=== PATIENT | female | born 1950 | race African-American/Black ===

== ENCOUNTER 2017-07-21 09:22 | Outpatient (CLI) | payer MEDICARE ==
--- NOTE | 2017-07-21 14:12 | RAD ---
BARIUM SWALLOW ESOPHAGRAM: Date: 07/21/17 HISTORY: Dysphagia. COMPARISON: None. TECHNIQUE/FINDINGS: Patient brought to the fluoroscopy suite. All questions were answered. The patient was initially giv en gas-forming crystals. Next, thick liquid barium was given. Primary and secondary peristalsis was poor. There are tertiary contractions. No abnormal secondary extrinsic mass effect. No diverticulum. Next, the patient was given a 13 mm barium tablet. The patient tolerated this well. It came down to the thoracic inlet, although the patient vomited it up. Next, the patient was put in the AKINS positi on and given thin liquid barium to continuously drink. There was a small sliding hiatal hernia. Prim becka and secondary peristalsis was poor. There was reflux of contrast to the mid one-third esophagus. IMPRESSION: 1. Poor primary and secondary peristalsis with tertiary contractions. 2. Patient unable to tolerate barium tablet and vomited this up after it reached the thoracic inlet , for which is stayed static for about 20 seconds before the patient vomiting. The tablet did not ex tend down past the thoracic inlet. 3. Small sliding hiatal hernia and reflux to mid one-third esophagus. 4. No extrinsic mass effect or diverticulum. Fluoro Time: 1.5 minutes. Dose: 60.34 mGy*cm\S\2. POS: [facility]
== END 2017-07-21 09:23 | disposition home or self-care (01) ==
LOC: RAD 09:22
PROVIDERS: ATTEND Surgery
DX: R13.10 Dysphagia, unspecified (principal); K21.9 Gastro-esophageal reflux disease without esophagitis; K44.9 Diaphragmatic hernia without obstruction or gangrene; M54.12 Radiculopathy, cervical region
CPT/HCPCS: 74220

== ENCOUNTER 2017-09-23 10:26 | Outpatient (CLI) | payer MEDICARE ==
--- NOTE | 2017-09-23 11:28 | CT ---
TWO VIEWS CERVICAL SPINE WITHOUT CONTRAST: HISTORY: Constant neck pain. Cervical radiculopathy. COMPARISON: None. FINDINGS: Small volume fluid in the left mastoid. The thyroid is enlarged and somewhat heterogeneous. The lung apices are clear. The odontoid process is intact. The occipital condyles are intact. No displaced fracture. No malal ignment. Levels are as follows: C2-C3: There is a central posterior disk protrusion. No significant neural foraminal narrowing. Th e spinal canal is not narrowed. C3-C4: There is mild uncinate process hypertrophy and posterior disk osteophyte complex. Mild facet arthrosis. The spinal canal measures 7 mm. C4-C5: Moderate uncinate process hypertrophy. Circumferential disc space height loss. Moderate fac et arthrosis. The spinal canal measures approximately 6 mm. Moderate to severe right and moderate l eft-sided neural foraminal narrowing. The spinal canal measures 6 mm. C5-C6: Moderate uncinate process hypertrophy. Posterior disk osteophyte complex. Moderate left and mild right-sided facet arthrosis. Moderate left-sided neural foraminal narrowing. The spinal canal measures approximately 6 mm. C6-C7: Severe degenerative disk space height loss. Uncinate process hypertrophy. There is moderate left and mild right-sided facet arthropathy. The spinal canal measures 7 mm. Moderate to severe le ft and moderate right-sided neural foraminal narrowing. C7-T1: There is mild facet arthrosis bilaterally. Moderate degenerative disk space height loss. Th e spinal canal measure 1 cm. No significant neural foramina or spinal canal narrowing. IMPRESSION: Multilevel spondylosis with spinal canal and neural foraminal narrowing as described above. POS: [facility]
== END 2017-09-23 10:27 | disposition home or self-care (01) ==
LOC: SCSCT 10:26
PROVIDERS: ATTEND Surgery
DX: M47.22 Other spondylosis with radiculopathy, cervical region (principal); M99.51 Intervertebral disc stenosis of neural canal of cervical region
CPT/HCPCS: 72125

== ENCOUNTER 2017-10-12 09:00 | Inpatient (IN) | payer MEDICARE ==
[2017-10-12 09:39] VITALS: BMI 32.5
[2017-10-20] MEDS ORDERED: Thrombin 5000 UNITS/5 ML VIAL ONE (06:17)
[2017-10-20] MEDS ORDERED: Sodium Chloride 0.9% 10 ML ONE (06:17)
[2017-10-20] MEDS ORDERED: Bacitracin Zinc Ointment 30 gm TUBE ONE (06:17)
[2017-10-20] MEDS ORDERED: Clindamycin/D5W 900 mg/50 ml Premix Bag ONE ×2 (06:19→14:20)
[2017-10-20] MEDS ORDERED: Levofloxacin 500 mg/D5W 100 ml Premix Bag ONE (06:20)
[2017-10-20] MEDS ORDERED: Albumin 5% 500 ML ONE (06:33)
[2017-10-20] MEDS ORDERED: Phenylephrine 10 MG/NS 250 ML 0 ML ONE (06:33)
[2017-10-20] MEDS ORDERED: Famotidine/PF 20 mg/2ml Vial ONE (06:33)
[2017-10-20] MEDS ORDERED: Midazolam HCl 2 mg/2 ml Vial ONE (06:41)
[2017-10-20] MEDS ORDERED: Fentanyl 250 MCG/5 ML VIAL ONE (06:55)
[2017-10-20] MEDS ORDERED: HYDROmorphone 2 MG/ML VIAL SLOW IVP PRN (09:09)
[2017-10-20] MEDS ORDERED: Promethazine HCl 25 MG/ML VIAL IM PRN ×2 (09:09→09:49)
[2017-10-20] MEDS ORDERED: Promethazine HCl 25 MG/ML VIAL SLOW IVP PRN (09:09)
[2017-10-20] MEDS ORDERED: Morphine Sulfate 2 MG/ML SYRINGE SLOW IVP PRN (09:09)
[2017-10-20] MEDS ORDERED: Ondansetron HCl/PF 4 MG/2 ML Vial IVP PRN (09:09)
[2017-10-20] MEDS ORDERED: Meperidine HCl/PF 25 MG/ML VIAL SLOW IVP PRN (09:09)
[2017-10-20] MEDS ORDERED: traMADol HCl 50 MG TAB PO PRN (09:49)
[2017-10-20] MEDS ORDERED: Fleet Enema 133 ML BOT PR PRN (09:49)
[2017-10-20] MEDS ORDERED: Bisacodyl 10 MG SUPP PR PRN (09:49)
[2017-10-20] MEDS ORDERED: Mag-Al 1200 mg/1200 mg/30 ML UDCUP PO PRN (09:49)
[2017-10-20] MEDS ORDERED: Milk Of Magnesia 30 ML UDCUP PO PRN (09:49)
[2017-10-20] MEDS ORDERED: Acetaminophen 325 MG TAB PO PRN (09:49)
[2017-10-20] MEDS ORDERED: Loratadine 10 MG TAB PO PRN (09:52)
[2017-10-20] MEDS ORDERED: Fentanyl 100 MCG/2 ML VIAL ONE ×3 (10:07→13:35)
--- NOTE | 2017-10-20 10:58 | OP ---
DATE OF PROCEDURE: 10/20/2017 OR: OR #12. WOUND TYPE: Type 1 wound. SURGEON: Wesly Emery M.D. HYPOID GEAR GENERATOR: Thomas Reese PA-C. PREPROCEDURE DIAGNOSES: 1. Cervical stenosis with myelopathy. 2. Ossification of the posterior longitudinal ligament. POSTPROCEDURE DIAGNOSES: 1. Cervical stenosis with myelopathy. 2. Ossification of the posterior longitudinal ligament. PROCEDURE: 1. C4-C5, C5, top of C6 laminectomies, partial facetectomies and foraminotomies. 2. Placement of screw scarlett fixation, C4, C5, C6. 3. Posterolateral fusion C4, C5, C6 with use of autograft obtained from same incision and allograft. DESCRIPTION OF PROCEDURE: After informed consent was obtained from the patient, the patient brought to OR 12. Proper patient pause and identification was carried out. She was placed under excellent g eneral endotracheal anesthesia and the Moreno samuel secured to her skull. She was then positioned prone on the operating room table and all appropriate points were padded. Identified the C4, C5, C6 dorsal spines and lamina and a linear jerrell was made over this region. This area was sterilely clean sed, prepared, and draped. Proper patient pause and identification was carried out. The wound was t hen opened with a combination of sharp, monopolar and blunt dissection at C4, C5, C6 segments were ex posed. Localization film confirmed our area of interest. We then performed C4-C5 and top to mid por tion of C6 laminectomies, partial facetectomies and foraminotomies satisfactory decompression of the C4, C5, and C6 segments. We then placed screws in the lateral masses of C4, C5, C6, and rods were pl aced and final tightening occurred. Satisfied with our construct we then copiously irrigated the wou nd and maximized hemostasis. We then decorticated over the posterolateral regions for arthrodesis an d fusion at C4, C5, C6. Vancomycin powder was also spread into the wound and the wound was closed in anatomic layers. The patient then emerged from anesthesia.
[2017-10-20] MEDS ORDERED: HYDROcodone/Acetaminophen 7.5/325 mg Tablet ONE (14:20)
[2017-10-20] MEDS ORDERED: Glycopyrrolate 0.2 MG/ML 5 ML SYRINGE ONE (15:05)
[2017-10-20] MEDS ORDERED: Dexamethasone 20 MG/5 ML VIAL ONE (15:05)
[2017-10-20] MEDS ORDERED: ePHEDrine/0.9% NaCl/PF SYRINGE 50 mg/10 ml ONE (15:05)
[2017-10-20] MEDS ORDERED: Ondansetron HCl/PF 4 MG/2 ML Vial ONE (15:05)
[2017-10-20] MEDS ORDERED: Propofol 200 MG/20 ML VIAL ONE (15:05)
[2017-10-20] MEDS ORDERED: Lidocaine 1% PF 5 ML VIAL ONE (15:05)
[2017-10-20] MEDS ORDERED: PHENYLEPHRINE-NS 100 MCG/ML 10 ML SYRINGE ONE (15:05)
[2017-10-20] MEDS ORDERED: Calcium Chloride 1 GM/10 ML Abboject SYRINGE ONE (15:05)
[2017-10-20] MEDS ORDERED: Morphine 2 MG/ML SYRINGE ONE (15:16)
[2017-10-20] MEDS: Clindamycin/D5W 900 MG in Premix Bag 1 BAG IVPB SCH ×2 (15:48→21:14)
[2017-10-20] MEDS: Sodium Chloride 0.9% 1,000 ML IV SCH (15:59)
[2017-10-20] MEDS: Ondansetron HCl/PF 4 MG/2 ML Vial IVP PRN (17:05)
[2017-10-20] MEDS: NIFEdipine XL 30 MG TAB PO SCH (21:17)
[2017-10-20] MEDS: HYDROcodone/Acetaminophen 7.5/325 mg Tablet PO PRN (21:23)
[2017-10-21] MEDS: Sodium Chloride 0.9% 1,000 ML IV SCH ×3 (00:39→18:06)
[2017-10-21] MEDS: HYDROcodone/Acetaminophen 7.5/325 mg Tablet PO PRN ×2 (04:16→14:10)
[2017-10-21] MEDS: Ondansetron HCl/PF 4 MG/2 ML Vial IVP PRN ×2 (07:48→14:10)
[2017-10-21] MEDS ORDERED: Loratadine 10 MG TAB PO PRN (09:00)
[2017-10-21] MEDS: Losartan/Hydrochlorothiazide 100 mg/25 mg Tablet PO SCH (09:12)
[2017-10-21] MEDS: Multivit, Therapeutic 1 TAB PO SCH (09:12)
[2017-10-21] MEDS: tiZANidine HCl 4 MG TAB PO PRN ×2 (11:23→18:06)
--- NOTE | 2017-10-21 13:38 | PRG ---
DATE OF SERVICE: 10/21/2017 SUBJECTIVE: Ms. Cage is postoperative day #01 from cervical laminectomy and decompression. She st ates her upper extremity pain is already improved. Obviously, we have been dealing with postoperativ e incisional pain standard for this type of surgery. She is not yet mobilized in the halls and we wi ll work on that. Neurologically, she is doing well. I anticipate at least another day in the hospit al.
[2017-10-21] MEDS: Acetaminophen/Codeine 30-300mg Tablet PO PRN ×2 (20:00→23:14)
[2017-10-21] MEDS: NIFEdipine XL 30 MG TAB PO SCH (20:00)
[2017-10-22] MEDS: Acetaminophen/Codeine 30-300mg Tablet PO PRN ×2 (05:12→12:31)
[2017-10-22] MEDS: Multivit, Therapeutic 1 TAB PO SCH (08:05)
[2017-10-22] MEDS: Losartan/Hydrochlorothiazide 100 mg/25 mg Tablet PO SCH (08:05)
[2017-10-22 11:34] VITALS: BP 134/88; TEMP 98.7
--- NOTE | 2017-10-22 17:00 | PRG ---
DATE OF SERVICE: 10/22/2017 POSTOPERATIVE PROGRESS NOTE Thomas Reese PA-C, dictating for Wesly Emery MD Ms. Cage is now postoperative day #2, having undergone a posterior cervical fusion. She states her pain is under much better control today. She does have some neck soreness, especially with movement . She has walked with physical therapy. Her pain is well controlled with oral medications. She has tolerated a diet and has voided. She is at her neurological baseline with good strength in the bila teral upper extremities. Her incision is uncovered and it is clean, dry, intact, and consistent with anticipated wound healing. It is closed with ye. I have asked the nurse to redress her wound before she leaves and I have reminded her daughter who is at bedside appropriate postoperative activi ty restrictions. I would like to keep the incision covered during the day, uncovered at night and co soni when she is wearing her collar. The patient is stable for discharge from [facility] with outpatient followup appointments.
== END 2017-10-22 13:56 | disposition home or self-care (01) | DRG 472 ==
LOC: SURG A 10-20 05:49
PROVIDERS: ADMIT Surgery; ATTEND Surgery
PROC: 00NW0ZZ Release Cervical Spinal Cord, Open Approach (ICD-10-PCS; principal; 2017-10-20)
PROC: 0RG40AJ Fusion of Cervicothoracic Vertebral Joint with Interbody Fusion Device, Posterior Approach, Anterior Column, Open Approach (ICD-10-PCS; 2017-10-20)
DX: M48.02 Spinal stenosis, cervical region (principal); M47.12 Other spondylosis with myelopathy, cervical region; R13.19 Other dysphagia; M85.80 Other specified disorders of bone density and structure, unspecified site; I10 Essential (primary) hypertension; E78.5 Hyperlipidemia, unspecified
CPT/HCPCS: 76001; 93005; 93010; A4216; C1713; G8978-GP-CK; G8979-GP-CK; G8980-GP-CK; J0131; J1100; J1956; J2001; J2250; J2270; J2405; J2704; J3010; J3370; J3490; P9045; S0028

== ENCOUNTER 2017-10-12 09:15 | Outpatient (CLI) | payer MEDICARE ==
[2017-10-12 10:23] LABS: Hemoglobin 16.3 g/dL (12.0-16.0); Mean Corpuscular HGB CONC 32.6 g/dL (32.0-36.0); Mean Corpuscular Hemoglobin 28.3 pg (27.0-31.0); Mean Corpuscular Volume 86.8 fl (81.0-99.0); Mean Platelet Volume 8.4 fL (7.4-10.4); Platelet Count 260 thou/uL (130-400); RBC Distribution Width 17.1 % (11.5-14.5); Red Blood Cell (RBC) Count 5.76 mill/uL (4.20-5.40); White Blood Cell (WBC) Count 4.7 thou/uL (4.8-10.8)
[2017-10-12 10:31] LABS: INR-International Normal Ratio 0.9; PTT 25.7 SEC (22.9-36.1); Prothrombin Time 12.5 SEC (12.0-14.7)
[2017-10-12 10:43] LABS: Anion Gap 16 mmol/L (10-20); BUN (Urea Nitrogen) 12 mg/dL (9.8-20.1); Calc. Creatinine Clearance 0 mL/min (70-130); Calcium 10.3 mg/dL (7.8-10.44); Carbon Dioxide 25 mmol/L (23-31); Chloride 102 mmol/L (98-107); Estimated GFR-MDRD 78; Glucose 93 mg/dL (80-115); Potassium 3.5 mmol/L (3.5-5.1); Sodium 139 mmol/L (136-145)
--- NOTE | 2017-10-13 23:35 | EKG ---
Test Reason : Blood Pressure : / mmHG Vent. Rate : 090 BPM Atrial Rate : 090 BPM P-R Int : 168 ms QRS Dur : 078 ms QT Int : 390 ms P-R-T Axes : 052 050 012 degrees QTc Int : 477 ms Normal sinus rhythm Normal ECG When compared with ECG of 20-MAY-2008 22:42, Questionable change in QRS axis Confirmed by Maryann COX ([id number]) on 10/13/2017 11:34:56 PM Referred By: ABBY Confirmed By:Maryann COX
== END 2017-10-12 09:16 | disposition home or self-care (01) ==
LOC: LABBT 09:15
PROVIDERS: ATTEND Surgery
DX: Z01.812 Encounter for preprocedural laboratory examination (principal); Z01.810 Encounter for preprocedural cardiovascular examination; M47.12 Other spondylosis with myelopathy, cervical region; Z88.0 Allergy status to penicillin; Z88.8 Allergy status to other drugs, medicaments and biological substances
CPT/HCPCS: 80048; 85027; 85610; 85730; 87081; 93005; 93010

== ENCOUNTER 2017-11-25 10:54 | Outpatient (CLI) | payer MEDICARE ==
--- NOTE | 2017-11-25 13:07 | RAD ---
CERVICAL SPINE SERIES THREE VIEWS: History: Follow up of cervical spine fracture. Comparison: 10-20-17 CT FINDINGS: Post-operative changes of the spine are noted. Bilateral posterior facet screws are seen at C4, C5, a nd C6. Disc narrowing is seen at the C5-6 and C6-7 levels. No evidence of a fracture on this plain fi lm examination. Bony alignment appears fairly satisfactory. IMPRESSION: Post-operative changes of the spine. POS: [facility]
== END 2017-11-25 10:55 | disposition home or self-care (01) ==
LOC: SCSRAD 10:54
PROVIDERS: ATTEND Surgery
DX: M54.12 Radiculopathy, cervical region (principal); Z98.890 Other specified postprocedural states
CPT/HCPCS: 72040

== ENCOUNTER 2018-06-25 14:04 | Outpatient (CLI) | payer MEDICARE | END 2018-06-25 14:05 | disposition home or self-care (01) | LOC: BICMAMMO 14:04 | PROVIDERS: ATTEND Family Medicine | DX: R92.8 Other abnormal and inconclusive findings on diagnostic imaging of breast (principal) | CPT/HCPCS: 77066; G0279 ==

== ENCOUNTER 2019-07-27 10:21 | Outpatient (CLI) | payer MEDICARE ==
--- NOTE | 2019-07-27 11:12 | MMO ---
Bilateral MAMMO Bilat Screen [facility]. CLINICAL HISTORY: Patient is 68 years old and is seen for screening. The patient has no family history of breast cancer. The patient has no personal history of cancer. The patient has a history of left Excisional Biopsy in 1988 - benign. VIEWS: The views performed were: bilateral craniocaudal with tomosynthesis and bilateral mediolateral oblique with tomosynthesis. FILMS COMPARED: The present examination has been compared to prior imaging studies performed at [facility] on 10/21/2011, 12/15/2012, 12/21/2012 and 06/25/2018. This study has been interpreted with the assistance of computer-aided detection. MAMMOGRAM FINDINGS: There are scattered fibroglandular densities. There are no suspicious masses, suspicious calcifications, or new areas of architectural distortion. IMPRESSION: THERE IS NO MAMMOGRAPHIC EVIDENCE OF MALIGNANCY. A ROUTINE FOLLOW-UP MAMMOGRAM IN 1 YEAR IS RECOMMENDED. THE RESULTS OF THIS EXAM WERE SENT TO THE PATIENT. ACR BI-RADS Category 1 - Negative MAMMOGRAPHY NOTE: 1. A negative mammogram report should not delay a biopsy if a dominant of clinically suspicious mass is present. 2. Approximately 10% to 15% of breast cancers are not detected by mammography. 3. Adenosis and dense breasts may obscure an underlying neoplasm. Reported by: FELIBERTO BAUER MD Electonically Signed: [id number]
--- NOTE | 2019-07-27 12:45 | BD ---
DEXA BONE MINERAL DENSITY STUDY: HISTORY: Osteoporosis screening. COMPARISON: DEXA exam from 2017. FINDINGS: LUMBAR SPINE BMD (g/cm2) T-SCORE Z-SCORE L1 0.720 -2.5 -1.2 L2 0.782 -2.2 -0.8 L3 0.835 -2.3 -0.8 L4 0.921 -1.3 0.2 TOTAL 0.821 -2.1 -0.6 Change from the comparison examination is +3.2%. BMD (g/cm2) T-SCORE Z-SCORE FEMORAL NECK 0.606 -2.2 -1.0 TOTAL LEFT HIP 0.789 -1.3 -0.3 Change from the comparison examination is -2.5%. IMPRESSION: Osteopenia with elevated fracture risk. POS: [facility]
== END 2019-07-27 10:22 | disposition home or self-care (01) ==
LOC: BICMAMMO 10:21
PROVIDERS: ATTEND Family Medicine
DX: Z12.31 Encounter for screening mammogram for malignant neoplasm of breast (principal); Z78.0 Asymptomatic menopausal state; Z13.820 Encounter for screening for osteoporosis; M85.89 Other specified disorders of bone density and structure, multiple sites
CPT/HCPCS: 77063; 77067; 77080

== ENCOUNTER 2019-08-23 13:00 | Outpatient (CLI) | payer MEDICARE ==
--- NOTE | 2019-08-23 15:42 | MRI ---
MRI Lumbar Spine Noncontrast: HISTORY: Lumbar stenosis with neurogenic claudication. No known injury. Patient states chronic low back pain f or many years COMPARISON: 05/11/2015 FINDINGS: Multiple increased T2-weighted signal intensity lesions are again seen in each kidney overall stable when compared to the prior study and likely represent renal cysts. Conus medullaris is normal in morphology and terminates at the L2 level. There has been interval development of a focal defect in the central aspect superior endplate of the L3 vertebral body likely related to a prominent Schmorl's node. Endplate degenerative changes are present at the L5-S1 level. There is incomplete visualization of irregularity involving the inferior endplate of the T11 vertebral body probably related to endplate degenerative changes or Schmorl's node. T12-L1: No significant central canal or neural foraminal narrowing. L1-2: Minimal disc bulge is again noted. There is no significant narrowing of the central spinal rory l or neural foramina. Mild facet degenerative changes are present. L2-3: Minimal disc bulge is again noted. Mild facet hypertrophic changes are present with mild ligame ntous thickening. There is no significant central canal or neural foraminal narrowing. L3-4: There is a broad-based disc osteophyte complex with facet hypertrophic changes and ligamentous thickening. Mild central canal narrowing is present with minimal left-sided neural foraminal narrowing. The right neural foramen is patent. L4-5: Mild disc bulge present. Facet hypertrophic changes and ligamentous thickening are noted. Findi ngs result in mild narrowing of the central spinal canal with mild bilateral neural foraminal narrowing. L5-S1: Again, there is loss of intervertebral disc height. Broad-based disc osteophyte complex with f acet hypertrophic changes and ligamentous thickening are again noted. Moderate bilateral neural foraminal narrowing is again seen similar to the prior study. Moderate central canal narrowing is als o again seen and stable. IMPRESSION: 1. Stable multilevel degenerative changes throughout the lumbar spine again most prominent at the L5- S1 level. 2. Interval development of a prominent Schmorl's node in the superior endplate L4 vertebral body. 3. T2 hyperintense lesions within each kidney likely reflective of bilateral renal cysts and are val lar to prior study.
== END 2019-08-23 13:01 | disposition home or self-care (01) ==
LOC: SCSMRI 13:00
PROVIDERS: ATTEND Specialist
DX: M48.062 Spinal stenosis, lumbar region with neurogenic claudication (principal); M47.816 Spondylosis without myelopathy or radiculopathy, lumbar region; M47.817 Spondylosis without myelopathy or radiculopathy, lumbosacral region; M51.46 Schmorl's nodes, lumbar region; N28.9 Disorder of kidney and ureter, unspecified
CPT/HCPCS: 72148

== ENCOUNTER 2020-04-16 13:41 | Outpatient (CLI) | payer MEDICARE ==
--- NOTE | 2020-04-16 14:06 | RAD ---
EXAM: Chest 2 views: HISTORY: Spitting up blood/hemoptysis COMPARISON: None. FINDINGS: There is a normal-sized cardiomediastinal silhouette. There is no evidence of consolidation, mass, or pleural effusion. Degenerative and postsurgical changes are seen in the spine. IMPRESSION: No evidence of acute cardiopulmonary disease
== END 2020-04-16 13:42 | disposition home or self-care (01) ==
LOC: SCSRAD 13:41
PROVIDERS: ATTEND Family Medicine
DX: R04.2 Hemoptysis (principal)
CPT/HCPCS: 71046

== ENCOUNTER 2020-06-12 14:14 | Outpatient (CLI) | payer MEDICARE ==
--- NOTE | 2020-06-12 15:24 | RAD ---
EXAM: XR Lumbar Spine Min 4 View PROVIDED CLINICAL HISTORY: Chronic back pain. Lumbar stenosis with neurogenic claudication COMPARISON: 12/30/2013 FINDINGS: Again noted are 5 nonrib-bearing lumbar-type vertebral bodies. Again noted is loss of intervertebral disc space at the L5-S1 level with suggestion of minimal vacuum phenomenon. The remaining intervertebral disc spaces as well as vertebral body heights are within normal limits. No fracture or subluxation is seen. There is what is thought to be prominent Schmorl's node in the superior endplate of the L4 vertebral body. This was seen on MRI lumbar spine and 2019. Vascular calcifications are seen in the abdominal aorta and iliac arteries. Vascular calcifications o verlying the pelvis. IMPRESSION: Degenerative changes in the lumbar spine greatest at the lumbosacral junction. No fracture or subluxa tion is seen.
--- NOTE | 2020-06-12 15:45 | MRI ---
MRI lumbar spine noncontrast HISTORY: Low back pain. Neurogenic claudication. COMPARISON: 08/23/2019. FINDINGS: Conus medullaris has normal appearance. Vertebral body heights are maintained. Images including the retroperitoneum again show cysts arising from the cortex of each kidney. T11-12: Disc space narrowing and mild posterior disc bulge, stable. T12-L1, L1-2, L2-3: Mild osteophytosis. Central canal and neural foramina are patent. L3-4: Mild disc space narrowing. Desiccation of the disc. Posterior disc bulge. Schmorl's node throug h the L4 superior endplate is similar in appearance to the prior study. Osteophytosis of the facets and posterior ligamentous thickening. Mild central canal stenosis. Mild to moderate right and moderat e left foraminal stenoses, stable. L4-5: Desiccation of the disc. Mild posterior disc bulging. Circumferential degenerative changes. Mod erate stenosis of the central canal. Moderate bilateral foraminal stenoses. L5-S1: Disc space narrowing. Minimal degenerative retrolisthesis. Posterior disc bulge and circumfere ntial degenerative changes. Moderate stenosis of the central canal and each neural foramen, left greater than right. Similar in appearance to the prior study. IMPRESSION : Multilevel degenerative changes throughout the lumbar spine, as detailed above, have not changed sign ificantly. No high-grade central canal stenosis. Stenosis greatest at the left neural foramen lumbosacral junction. Clinical correlation regarding the left L5 dermatome is required.
== END 2020-06-12 14:15 | disposition home or self-care (01) ==
LOC: SCSMRI 14:14
PROVIDERS: ATTEND Nurse Practitioner Family
DX: M48.062 Spinal stenosis, lumbar region with neurogenic claudication (principal); M47.816 Spondylosis without myelopathy or radiculopathy, lumbar region; M47.817 Spondylosis without myelopathy or radiculopathy, lumbosacral region; M48.07 Spinal stenosis, lumbosacral region
CPT/HCPCS: 72110; 72148

== ENCOUNTER 2021-05-20 13:52 | Outpatient (CLI) | payer MEDICARE | END 2021-05-20 13:53 | disposition home or self-care (01) | LOC: BICRAD 13:52 | PROVIDERS: ATTEND Internal Medicine Pulmonary Disease | DX: R06.00 Dyspnea, unspecified (principal) | CPT/HCPCS: 71046 ==

== ENCOUNTER 2021-06-12 19:30 | Outpatient (CLI) | payer MEDICARE | END 2021-06-12 19:31 | disposition home or self-care (01) | LOC: SLEEPLAB 19:30 | PROVIDERS: ATTEND Internal Medicine Pulmonary Disease | DX: G47.33 Obstructive sleep apnea (adult) (pediatric) (principal); R53.83 Other fatigue; R51.9 Headache, unspecified; E66.9 Obesity, unspecified; I51.89 Other ill-defined heart diseases; R06.83 Snoring; F32.9 Major depressive disorder, single episode, unspecified; G47.00 Insomnia, unspecified; Z68.35 Body mass index [BMI] 35.0-35.9, adult | CPT/HCPCS: 95810 ==

== ENCOUNTER 2021-06-30 18:03 | Emergency (ER) | payer MEDICARE ==
[2021-06-30 19:22] LABS: Hemoglobin 13.1 g/dL (12.0-16.0); Mean Corpuscular HGB CONC 31.9 g/dL (32.0-36.0); Mean Corpuscular Hemoglobin 24.4 pg (27.0-31.0); Mean Corpuscular Volume 76.6 fL (78.0-98.0); Mean Platelet Volume 11.6 fL (7.4-10.4); Platelet Count 295 thou/uL (130-400); RBC Distribution Width 20.2 % (11.5-14.5); Red Blood Cell (RBC) Count 5.37 mill/uL (4.20-5.40)
[2021-06-30 19:39] LABS: ALT (SGPT) 12 U/L (8-55); AST (SGOT) 28 U/L (5-34); Albumin 4.2 g/dL (3.4-4.8); Alkaline Phosphatase 107 U/L (40-110); Anion Gap 13 mmol/L (10-20); BUN (Urea Nitrogen) 7 mg/dL (9.8-20.1); Bilirubin, Total 0.6 mg/dL (0.2-1.2); Calc. Creatinine Clearance 0 mL/min (70-130); Calcium 9.4 mg/dL (7.8-10.44); Carbon Dioxide 20 mmol/L (23-31); Chloride 108 mmol/L (98-107); Glucose 82 mg/dL (83-110); Potassium 4.4 mmol/L (3.5-5.1); Protein, Total 8.2 g/dL (5.8-8.1); Sodium 137 mmol/L (136-145)
[2021-06-30 19:48] LABS: Anisocytosis SLIGHT = 6-15 cells (100X) (0-5/hpf); Eosinophils 4 % (0-10); Hypochromia SLIGHT = 6-15 cells (100X) (0-5/hpf); Large Platelets SLIGHT; Lymphocytes 30 % (21-51); MDiff Complete? YES; Microcytosis SLIGHT = 6-15 cells (100X) (0-5/hpf); Monocytes 11 % (0-10); Neutrophil 47 % (42-75); Platelet Morphology Comment Appears Adequate; Polychromasia SLIGHT = 2-3 cells (100X) (0-2/hpf); Reactive Lymphocytes 8 % (0-10); Target Cells MODERATE= 6-15 cells (100X) (0-1/hpf)
[2021-06-30] MEDS ORDERED: Ketorolac Tromethamine 30 MG/ML VIAL ONE (20:08)
== END 2021-06-30 21:10 | disposition home or self-care (01) ==
LOC: ERS 18:03
DX: M25.462 Effusion, left knee (principal); Z79.899 Other long term (current) drug therapy; Z79.82 Long term (current) use of aspirin; Z79.891 Long term (current) use of opiate analgesic; E78.5 Hyperlipidemia, unspecified; K21.9 Gastro-esophageal reflux disease without esophagitis; I10 Essential (primary) hypertension; Z87.891 Personal history of nicotine dependence
CPT/HCPCS: 36415; 80053; 85025; 86140; 96372; J1885

== ENCOUNTER 2021-09-05 08:34 | Outpatient (CLI) | payer MEDICARE | END 2021-09-05 08:35 | disposition home or self-care (01) | LOC: BICMAMMO 08:34 | PROVIDERS: ATTEND Family Medicine | DX: Z12.31 Encounter for screening mammogram for malignant neoplasm of breast (principal); Z13.820 Encounter for screening for osteoporosis; N95.1 Menopausal and female climacteric states; M85.88 Other specified disorders of bone density and structure, other site; M81.0 Age-related osteoporosis without current pathological fracture | CPT/HCPCS: 77063; 77067; 77080 ==

== ENCOUNTER 2021-12-20 14:38 | Outpatient (CLI) | payer MEDICARE | END 2021-12-20 14:39 | disposition home or self-care (01) | LOC: ULT 14:38 | PROVIDERS: ATTEND Orthopaedic Surgery | DX: S82.142A Displaced bicondylar fracture of left tibia, initial encounter for closed fracture (principal) ==

== ENCOUNTER 2022-05-12 16:16 | Outpatient (CLI) | payer MEDICARE | END 2022-05-12 16:17 | disposition home or self-care (01) | LOC: RAD 16:16 | PROVIDERS: ATTEND Internal Medicine Pulmonary Disease | DX: J44.1 Chronic obstructive pulmonary disease with (acute) exacerbation (principal) | CPT/HCPCS: 71046 ==

== ENCOUNTER 2022-11-19 13:32 | Outpatient (CLI) | payer MEDICARE | END 2022-11-19 13:33 | disposition home or self-care (01) | LOC: BICMAMMO 13:32 | PROVIDERS: ATTEND Family Medicine | DX: Z12.31 Encounter for screening mammogram for malignant neoplasm of breast (principal); Z91.89 Other specified personal risk factors, not elsewhere classified | CPT/HCPCS: 77063; 77067 ==

== ENCOUNTER 2023-07-03 14:41 | Outpatient (CLI) | payer MEDICARE ==
[~2023-07-03 14:41] MED LIST: Iopamidol 370 76% 100 ML VIAL ONE
== END 2023-07-03 14:42 | disposition home or self-care (01) ==
LOC: BICCT 14:41
PROVIDERS: ATTEND Family Medicine
DX: R19.7 Diarrhea, unspecified (principal); K57.30 Diverticulosis of large intestine without perforation or abscess without bleeding; N28.1 Cyst of kidney, acquired
CPT/HCPCS: 74177; 82565; Q9967

== ENCOUNTER 2023-07-21 15:30 | Outpatient (CLI) | payer MEDICARE | END 2023-07-21 15:31 | disposition home or self-care (01) | LOC: BICMRI 15:30 → SCSMRI 15:31 | PROVIDERS: ATTEND Nurse Practitioner Family | DX: M51.17 Intervertebral disc disorders with radiculopathy, lumbosacral region (principal); M47.816 Spondylosis without myelopathy or radiculopathy, lumbar region; M51.36 Other intervertebral disc degeneration, lumbar region | CPT/HCPCS: 72148 ==

== ENCOUNTER 2024-03-17 19:03 | Inpatient (IN) | payer MEDICARE ==
[~2024-03-17 19:03] MED LIST changes: -Iopamidol 370 76% 100 ML VIAL ONE; +Iopamidol-370 76% 500 ML MDV (1 ML CHARGE) ONE
[2024-03-17] MEDS ORDERED: Cefepime 2 GM VIAL ONE (20:14)
[2024-03-17] MEDS ORDERED: Sodium Chloride 0.9% 100 ML ONE (20:15)
[2024-03-17] MEDS ORDERED: levETIRAcetam 500 MG (5 mL) VIAL ONE (20:21)
[2024-03-17] MEDS ORDERED: Lorazepam 2 MG/ML VIAL ONE (20:21)
[2024-03-17] MEDS ORDERED: Acetaminophen 650 MG Suppository ONE (20:21)
[2024-03-17] MEDS ORDERED: Aspirin 300 MG Suppository ONE (20:22)
[2024-03-17 20:23] LABS: ALT (SGPT) 11 U/L (8-55); AST (SGOT) 18 U/L (5-34); Albumin 3.3 g/dL (3.4-4.8); Alkaline Phosphatase 96 U/L (40-110); Anion Gap 15 mmol/L (10-20); BUN (Urea Nitrogen) 50 mg/dL (9.8-20.1); Bilirubin, Total 0.4 mg/dL (0.2-1.2); Calc. Creatinine Clearance 0 mL/min (70-130); Calcium 8.8 mg/dL (7.8-10.44); Carbon Dioxide 14 mmol/L (23-31); Chloride 110 mmol/L (98-107); Estimated GFR 19; Glucose 99 mg/dL (83-110); Magnesium 2.2 mg/dL (1.6-2.6); Potassium 5.3 mmol/L (3.5-5.1); Protein, Total 8.3 g/dL (5.8-8.1); Sodium 134 mmol/L (136-145)
[2024-03-17 20:59] LABS: Hematocrit 42.9 % (36.0-47.0); Hemoglobin 14.2 g/dL (12.0-16.0); Mean Corpuscular HGB CONC 33.1 g/dL (32.0-36.0); Mean Corpuscular Hemoglobin 29.9 pg (27.0-31.0); Mean Corpuscular Volume 90.3 fL (78.0-98.0); Mean Platelet Volume 10.9 fL (7.4-10.4); Platelet Count 234 10x3/uL (130-400); Red Blood Cell (RBC) Count 4.75 mill/uL (4.20-5.40)
[2024-03-17] MEDS ORDERED: Ipratropium/Albuterol 3 ML NEB ONE (21:24)
[2024-03-17] MEDS ORDERED: Albuterol 2.5 MG (3 mL) NEB ONE (21:24)
[2024-03-17 21:27] LABS: Anisocytosis MODERATE=16-30 cells HPF (0-5); Band 13 % (5-11); Large Platelets 3.8 % (0-5); Lymphocytes 12 % (21-51); Macrocytosis MODERATE=16-30 cells HPF (0-5); Monocytes 7 % (0-10); Neutrophil 69 % (42-75); Platelet Adequacy Comment Platelets Normal; Polychromasia SLIGHT = 2-3 cells HPF (0-2); RBC Morphology Within Normal Limits; Smudge Cells 8.7 %
[2024-03-17] MEDS ORDERED: Ketamine In 0.9 % NaCl 50 MG/5 ML SYRINGE ONE (21:40)
[2024-03-17] MEDS ORDERED: fentaNYL 50 mcg/mL 1 mL Vial ONE (21:45)
[2024-03-17] MEDS ORDERED: Rocuronium Bromide 10 MG/ML (10ML VIAL) ONE (21:46)
[2024-03-17 22:11] LABS: Base Excess (BEa) -13.5 mEq/L (-2.0 to +3.0); CO2 Tension 30.8 mmHg (35.0-45.0); Calcium, Ionized (arterial) 1.18 mmol/L (1.12-1.30); Carboxyhemoglobin (COHb) 0.7 gm% (0.0-3.0); Hematocrit-ABG 47 % (36.0-47.0); O2 Tension (PaO2), arterial 279.8 mmHg (> 70.0); pH, Arterial 7.229 (7.35-7.45)
[2024-03-17 22:11] LABS: Influenza A by NAA Not Detected (NotDetected); Influenza B by NAA Not Detected (NotDetected); SARS-CoV-2 NAA Rapid Test DETECTED (NotDetected)
[2024-03-17] MEDS ORDERED: Ondansetron PF 4 MG/2 ML Vial IVP PRN (22:12)
[2024-03-17] MEDS ORDERED: Ondansetron ODT 4 MG TAB PO PRN (22:12)
[2024-03-17 22:14] LABS: Actual Bicarbonate (HCO3a) 12.6 mEq/L (22-28); Puncture Site RB
[2024-03-17] MEDS ORDERED: Fentanyl CADD 100 ML IV SCH (22:15)
[2024-03-17] MEDS ORDERED: Ventilator Sedation Protocol 1 EACH FS SCH (22:45)
[2024-03-17] MEDS ORDERED: hydrALAZINE 20 MG/ML VIAL SLOW IVP PRN (22:50)
[2024-03-17] MEDS ORDERED: methylPREDNISolone Sod Succ/PF 125 MG/2 ML VIAL ONE (22:56)
[2024-03-17] MEDS ORDERED: Magnesium 2 GM/50 ML BAG (IN WATER) ONE (22:56)
[2024-03-17] MEDS ORDERED: NOREPINEPHRINE 8 MG/250 ML-D5W 250 ML ONE (22:56)
[2024-03-17] MEDS: Ipratropium Bromide 2.5 ml Neb ONE (23:00)
[2024-03-17] MEDS: Albuterol 2.5 MG (3 mL) NEB ONE (23:00)
[2024-03-17 23:15] LABS: Bacteria/HPF None Seen HPF (None Seen); Bilirubin Negative (Negative); Blood, Urine Negative (Negative); CAUTI Indications for Culture Alt mental st,lethar; Clarity Clear (Clear); Glucose, Urine (Dipstick) Normal (Negative); Ketone, Urine Negative (Negative); Leukocyte Negative Leu/uL (Negative); Nitrite Negative (Negative); Protein, Urine (Dipstick) 30 mg/dL (Neg-Trace); RBC/HPF None Seen HPF (0-3); Specific Gravity, Urine 1.025 (1.002-1.036); Squamous Epithelial 0-3 HPF (0-3); Urobilinogen Normal mg/dL (Less than 2); WBC/HPF 0-3 HPF (0-3); pH, Urine 5.5 (5.0-9.0)
[2024-03-17 23:18] LABS: Urine Culture Reflex No No
[2024-03-17] MEDS: Vancomycin (BATCH) 1.5 GM in Premix 1 BAG IVPB SCH (23:35)
[2024-03-18] MEDS ORDERED: Propofol 1,000 MG/100 ML VIAL IV PRN (00:15)
[2024-03-18] MEDS ORDERED: Propofol BOLUS 1,000 MG/100 ML VIAL IV PRN (00:15)
[2024-03-18] MEDS ORDERED: Lorazepam 2 MG/ML VIAL SLOW IVP PRN (00:15)
[2024-03-18] MEDS ORDERED: Fentanyl BOLUS 250 ML IVPB PRN (00:15)
[2024-03-18] MEDS ORDERED: DISCONTINUE PREVIOUS NARCOTIC PAIN MEDICATIONS AND BENZODIAZEPINES FS SCH (00:15)
[2024-03-18] MEDS ORDERED: Morphine 2 MG/ML VIAL SLOW IVP PRN (00:15)
[2024-03-18] MEDS: Ipratropium/Albuterol 3 ML NEB NEB SCH (00:24)
[2024-03-18 00:34] LABS: Base Excess (BEa) -14.8 mEq/L (-2.0 to +3.0); CO2 Tension 33.6 mmHg (35.0-45.0); Calcium, Ionized (arterial) 1.18 mmol/L (1.12-1.30); Carboxyhemoglobin (COHb) 0.8 gm% (0.0-3.0); Hematocrit-ABG 40 % (36.0-47.0); Hemoglobin (Hb) 13.5 g/dL (12.0-16.0); O2 Tension (PaO2), arterial 76.2 mmHg (> 70.0); Potassium - ABG Lab 5.31 mmol/L (3.70-5.30)
[2024-03-18 00:36] LABS: Actual Bicarbonate (HCO3a) 12.4 mEq/L (22-28); Puncture Site LRA; pH, Arterial 7.184 (7.35-7.45)
[2024-03-18] MEDS: Sodium Bicarb 50 mEq/50 ML VIAL IVP SCH (01:28)
[2024-03-18] MEDS: Sodium Bicarbonate 150 MEQ in Dextrose 5% in Water 1,000 ML IV SCH (01:29)
[2024-03-18 03:47] VITALS: BMI 31.8
[2024-03-18 05:35] LABS: Anion Gap 13 mmol/L (10-20); BUN (Urea Nitrogen) 32 mg/dL (9.8-20.1); Calc. Creatinine Clearance 42 mL/min (70-130); Calcium 7.9 mg/dL (7.8-10.44); Carbon Dioxide 17 mmol/L (23-31); Cardiac Risk 5.7 (Less than 4.5); Chloride 116 mmol/L (98-107); Cholesterol 136 mg/dl (< 200 Desired); Estimated GFR 37; Glucose 189 mg/dL (83-110); HDL Cholesterol 24 mg/dL (>60 Neg Risk); LDL Cholesterol, Calculated 91 mg/dL; Potassium 4.3 mmol/L (3.5-5.1); Sodium 142 mmol/L (136-145); Triglycerides 107 mg/dL (Less than 150)
[2024-03-18 06:57] LABS: Hematocrit 39.5 % (36.0-47.0); Hemoglobin 13.3 g/dL (12.0-16.0); Mean Corpuscular HGB CONC 33.7 g/dL (32.0-36.0); Mean Corpuscular Hemoglobin 30.2 pg (27.0-31.0); Mean Corpuscular Volume 89.6 fL (78.0-98.0); Mean Platelet Volume 11.8 fL (7.4-10.4); Platelet Count 256 10x3/uL (130-400); RBC Distribution Width 15.9 % (11.5-14.5); Red Blood Cell (RBC) Count 4.41 mill/uL (4.20-5.40)
[2024-03-18 07:52] LABS: Actual Bicarbonate (HCO3a) 19.2 mEq/L (22-28); Base Excess (BEa) -4.1 mEq/L (-2.0 to +3.0); CO2 Tension 30.5 mmHg (35.0-45.0); Calcium, Ionized (arterial) 1.08 mmol/L (1.12-1.30); Hematocrit-ABG 43 % (36.0-47.0); Hemoglobin (Hb) 14.6 g/dL (12.0-16.0); O2 Tension (PaO2), arterial 82.1 mmHg (> 70.0); pH, Arterial 7.417 (7.35-7.45)
[2024-03-18 07:56] LABS: ALV-art Gradient 164.975 mmHg (0-20); Puncture Site RRA
[2024-03-18 08:56] LABS: Anisocytosis SLIGHT = 6-15 cells HPF (0-5); Band 19 % (5-11); Burr Cells SLIGHT = 2-5 cells HPF (0-1); Large Platelets 6.8 % (0-5); Lymphocytes 8 % (21-51); Monocytes 4 % (0-10); Neutrophil 69 % (42-75); Platelet Adequacy Comment Platelets Normal; Target Cells SLIGHT = 2-5 cells HPF (0-1)
[2024-03-18] MEDS ORDERED: Aspirin 81 mg Enteric Coated Tablet PO SCH (09:00)
[2024-03-18] MEDS ORDERED: Cefepime 1 GM in Sodium Chloride 0.9% 100 ML IVPB SCH (09:00)
[2024-03-18] MEDS ORDERED: Enoxaparin 40 MG (0.4 mL) SYRINGE SC SCH (09:00)
[2024-03-18] MEDS ORDERED: Enoxaparin 30 MG (0.3 mL) SYRINGE SC SCH (09:00)
[2024-03-18] MEDS: Aspirin Chewable 81 MG TAB PO SCH (10:00)
[2024-03-18] MEDS: Enoxaparin 40 MG (0.4 mL) SYRINGE SC SCH (10:00)
[2024-03-18] MEDS: Dexamethasone 4 mg/ml Vial SLOW IVP SCH ×2 (10:00→18:21)
[2024-03-18] MEDS: Cefepime 1 GM in Sodium Chloride 0.9% 100 ML IVPB SCH (10:01)
[2024-03-18] MEDS: Pantoprazole 40 MG VIAL IVP SCH (10:03)
[2024-03-18] MEDS: Sodium Chloride 0.45% 1,000 ML IV SCH (14:58)
[2024-03-18] MEDS: Ipratropium/Albuterol 3 ML NEB ONE (15:39)
[2024-03-18] MEDS: levETIRAcetam 500 MG (5 mL) VIAL SLOW IVP SCH (22:52)
[2024-03-19] MEDS: Fentanyl CADD 100 ML IV SCH (04:17)
[2024-03-19 05:08] LABS: Hematocrit 37.8 % (36.0-47.0); Hemoglobin 13.2 g/dL (12.0-16.0); Mean Corpuscular HGB CONC 34.9 g/dL (32.0-36.0); Mean Corpuscular Hemoglobin 30.2 pg (27.0-31.0); Mean Corpuscular Volume 86.5 fL (78.0-98.0); Mean Platelet Volume 11.1 fL (7.4-10.4); Platelet Count 264 10x3/uL (130-400); RBC Distribution Width 15.2 % (11.5-14.5); Red Blood Cell (RBC) Count 4.37 mill/uL (4.20-5.40)
[2024-03-19 06:14] LABS: Anion Gap 14 mmol/L (10-20); BUN (Urea Nitrogen) 20 mg/dL (9.8-20.1); Calc. Creatinine Clearance 80 mL/min (70-130); Calcium 8.1 mg/dL (7.8-10.44); Carbon Dioxide 20 mmol/L (23-31); Chloride 112 mmol/L (98-107); Estimated GFR 78; Glucose 137 mg/dL (83-110); Magnesium 2.3 mg/dL (1.6-2.6); Phosphorus 1.2 mg/dL (2.3-4.7); Potassium 3.7 mmol/L (3.5-5.1); Sodium 142 mmol/L (136-145)
[2024-03-19 06:38] LABS: Hemoglobin A1c 5.7 % (4.0-6.0)
[2024-03-19] MEDS: Pantoprazole 40 MG VIAL IVP SCH (09:04)
[2024-03-19] MEDS: Dexamethasone 4 mg/ml Vial SLOW IVP SCH (09:05)
[2024-03-19] MEDS: Potassium Phosphate 30 MMOL in Sodium Chloride 0.9% 500 ML IVPB SCH (09:54)
[2024-03-19] MEDS: Potassium Phosphate 30 MMOL in Sodium Chloride 0.9% 250 ML 250 ML IVPB SCH (09:58)
[2024-03-19] MEDS ORDERED: Electrolyte Replacement Protocol 1 EACH FS SCH (10:34)
[2024-03-19] MEDS: DC Sedation Protocol FS ONE (13:47)
[2024-03-20] MEDS: Morphine 4 MG/ML VIAL ONE (08:39)
[2024-03-20] MEDS: Morphine 2 MG/ML VIAL SLOW IVP PRN (08:41)
[2024-03-20 08:47] LABS: #Basophils Less than 0.03 10x3/uL (0.0-0.2); #Eosinphils Less than 0.03 10x3/uL (0.0-0.7); %Basophils 0.1 % (0.0-1.0); %Lymphocytes 8.5 % (21.0-51.0); %Monocytes 5.7 % (0.0-10.0); %Neutrophils 84.1 % (42.0-75.0); Hematocrit 39.1 % (36.0-47.0); Hemoglobin 13.3 g/dL (12.0-16.0); Mean Corpuscular Hemoglobin 30.3 pg (27.0-31.0); Mean Corpuscular Volume 89.1 fL (78.0-98.0); Mean Platelet Volume 11.1 fL (7.4-10.4); Platelet Count 273 10x3/uL (130-400); RBC Distribution Width 15.5 % (11.5-14.5); Red Blood Cell (RBC) Count 4.39 mill/uL (4.20-5.40)
[2024-03-20 09:05] LABS: Anion Gap 16 mmol/L (10-20); BUN (Urea Nitrogen) 16 mg/dL (9.8-20.1); Calc. Creatinine Clearance 84 mL/min (70-130); Calcium 8.3 mg/dL (7.8-10.44); Carbon Dioxide 20 mmol/L (23-31); Chloride 109 mmol/L (98-107); Estimated GFR 84; Glucose 103 mg/dL (83-110); Potassium 4.1 mmol/L (3.5-5.1); Sodium 141 mmol/L (136-145)
[2024-03-20 09:27] LABS: Phosphorus 1.5 mg/dL (2.3-4.7)
[2024-03-20] MEDS: Electrolyte Replacement Protocol 1 EACH FS ONE (11:00)
[2024-03-20] MEDS: Potassium Phosphate 22 MMOL in Sodium Chloride 0.9% 250 ML 250 ML IVPB SCH (11:15)
[2024-03-21 03:13] LABS: #Basophils 0.03 10x3/uL (0.0-0.2); #Eosinphils Less than 0.03 10x3/uL (0.0-0.7); %Basophils 0.2 % (0.0-1.0); %Lymphocytes 8.9 % (21.0-51.0); %Monocytes 7.2 % (0.0-10.0); %Neutrophils 82.3 % (42.0-75.0); Hemoglobin 15.2 g/dL (12.0-16.0); Mean Corpuscular HGB CONC 34.5 g/dL (32.0-36.0); Mean Corpuscular Hemoglobin 30.2 pg (27.0-31.0); Mean Corpuscular Volume 87.3 fL (78.0-98.0); Mean Platelet Volume 10.5 fL (7.4-10.4); Platelet Count 314 10x3/uL (130-400); RBC Distribution Width 15.3 % (11.5-14.5); Red Blood Cell (RBC) Count 5.04 mill/uL (4.20-5.40)
[2024-03-21 04:58] LABS: Anion Gap 19 mmol/L (10-20); BUN (Urea Nitrogen) 19 mg/dL (9.8-20.1); Calc. Creatinine Clearance 84 mL/min (70-130); Calcium 8.5 mg/dL (7.8-10.44); Carbon Dioxide 15 mmol/L (23-31); Chloride 113 mmol/L (98-107); Estimated GFR 84; Glucose 96 mg/dL (83-110); Potassium 4.5 mmol/L (3.5-5.1); Sodium 142 mmol/L (136-145)
[2024-03-21 07:15] LABS: Phosphorus 2.3 mg/dL (2.3-4.7)
[2024-03-21] MEDS ORDERED: Ipratropium/Albuterol 3 ML NEB NEB PRN (11:42)
[2024-03-21] MEDS: Haloperidol Lactate 5 MG/ML VIAL IM SCH (12:18)
[2024-03-21] MEDS: Albuterol 2.5 MG (3 mL) NEB NEB SCH (12:24)
[2024-03-21] MEDS: Haloperidol Lactate 5 MG/ML VIAL ONE (12:49)
[2024-03-21] MEDS: Citalopram 10 MG TAB PO SCH (14:03)
[2024-03-21] MEDS: Lacosamide 50 MG in Sodium Chloride 0.9% 50 ML IVPB SCH (15:47)
[2024-03-21] MEDS: Pregabalin 75 MG CAP PO SCH (16:20)
[2024-03-21] MEDS ORDERED: Loperamide HCl 2 MG CAP PO PRN (19:38)
[2024-03-21] MEDS: Ketorolac Tromethamine 30 MG (1 mL) VIAL IVP PRN (22:33)
[2024-03-22 04:11] LABS: #Basophils 0.03 10x3/uL (0.0-0.2); #Eosinphils Less than 0.03 10x3/uL (0.0-0.7); %Basophils 0.1 % (0.0-1.0); %Lymphocytes 11.8 % (21.0-51.0); %Monocytes 10.2 % (0.0-10.0); %Neutrophils 76.6 % (42.0-75.0); Hemoglobin 14.4 g/dL (12.0-16.0); Mean Corpuscular HGB CONC 34.3 g/dL (32.0-36.0); Mean Corpuscular Hemoglobin 30.1 pg (27.0-31.0); Mean Corpuscular Volume 87.9 fL (78.0-98.0); Mean Platelet Volume 11.3 fL (7.4-10.4); Platelet Count 291 10x3/uL (130-400); Red Blood Cell (RBC) Count 4.78 mill/uL (4.20-5.40)
[2024-03-22 04:31] LABS: Anion Gap 16 mmol/L (10-20); BUN (Urea Nitrogen) 27 mg/dL (9.8-20.1); Calc. Creatinine Clearance 68 mL/min (70-130); Calcium 8.2 mg/dL (7.8-10.44); Carbon Dioxide 15 mmol/L (23-31); Chloride 115 mmol/L (98-107); Estimated GFR 68; Glucose 96 mg/dL (83-110); Potassium 3.7 mmol/L (3.5-5.1); Sodium 142 mmol/L (136-145)
[2024-03-22] MEDS: Acetaminophen 650 MG Suppository PR PRN (05:11)
[2024-03-22] MEDS: Lacosamide 50 MG in Sodium Chloride 0.9% 50 ML IVPB SCH (05:11)
[2024-03-22] MEDS: Citalopram 10 MG TAB PO SCH (10:23)
[2024-03-22] MEDS: HYDROcodone/Acetaminophen 7.5/325 mg Tablet PO PRN (15:09)
[2024-03-23 04:10] LABS: Hematocrit 46.2 % (36.0-47.0); Hemoglobin 15.6 g/dL (12.0-16.0); Mean Corpuscular HGB CONC 33.8 g/dL (32.0-36.0); Mean Corpuscular Hemoglobin 29.5 pg (27.0-31.0); Mean Corpuscular Volume 87.3 fL (78.0-98.0); Mean Platelet Volume 11.6 fL (7.4-10.4); Platelet Count 243 10x3/uL (130-400); RBC Distribution Width 15.7 % (11.5-14.5); Red Blood Cell (RBC) Count 5.29 mill/uL (4.20-5.40)
[2024-03-23 04:49] LABS: Anion Gap 16 mmol/L (10-20); BUN (Urea Nitrogen) 21 mg/dL (9.8-20.1); Calc. Creatinine Clearance 49 mL/min (70-130); Calcium 8.4 mg/dL (7.8-10.44); Carbon Dioxide 14 mmol/L (23-31); Chloride 112 mmol/L (98-107); Estimated GFR 45; Glucose 73 mg/dL (83-110); Sodium 137 mmol/L (136-145)
[2024-03-23 05:22] LABS: Band 13 % (5-11); Burr Cells MODERATE= 6-15 cells HPF (0-1); Lymphocytes 9 % (21-51); Metamyelocyte 1 % (0-0); Monocytes 8 % (0-10); Neutrophil 67 % (42-75); Nucleated RBC (Manual Ct) 1 % (0); Platelet Adequacy Comment Platelets Normal; Polychromasia SLIGHT = 2-3 cells HPF (0-2); Reactive Lymphocytes 2 % (0-10)
[2024-03-23] MEDS ORDERED: Azithromycin 500 MG in Sodium Chloride 0.9% 250 ML 250 ML IVPB SCH (08:30)
[2024-03-23] MEDS: LevoFLOXacin 750 mg/D5W 750 MG in Premix 1 BAG IVPB SCH (09:22)
[2024-03-23] MEDS: Sodium Chloride 0.45% 1,000 ML IV SCH (11:08)
[2024-03-23] MEDS: Dexamethasone 4 MG TAB PO SCH (11:11)
[2024-03-23] MEDS: Acetaminophen 325 MG TAB PO PRN (13:37)
[2024-03-23 14:16] VITALS: BMI 31.6
[2024-03-23] MEDS: Lacosamide 50 mg Tablet PO SCH (18:20)
[2024-03-23] MEDS: Albuterol 2.5 MG (3 mL) NEB NEB PRN (21:36)
[2024-03-24] MEDS: Pantoprazole DR 40 MG TAB PO SCH (09:18)
[2024-03-24 11:09] LABS: Anion Gap 15 mmol/L (10-20); BUN (Urea Nitrogen) 19 mg/dL (9.8-20.1); Calc. Creatinine Clearance 69 mL/min (70-130); Calcium 8.9 mg/dL (7.8-10.44); Carbon Dioxide 16 mmol/L (23-31); Chloride 107 mmol/L (98-107); Estimated GFR 69; Glucose 120 mg/dL (83-110); Potassium 4.3 mmol/L (3.5-5.1); Sodium 134 mmol/L (136-145)
[2024-03-24 11:38] LABS: Hematocrit 38.1 % (36.0-47.0); Hemoglobin 12.8 g/dL (12.0-16.0); Mean Corpuscular HGB CONC 33.6 g/dL (32.0-36.0); Mean Corpuscular Hemoglobin 29.4 pg (27.0-31.0); Mean Corpuscular Volume 87.6 fL (78.0-98.0); Mean Platelet Volume 11.2 fL (7.4-10.4); Platelet Count 282 10x3/uL (130-400); RBC Distribution Width 15.6 % (11.5-14.5); Red Blood Cell (RBC) Count 4.35 mill/uL (4.20-5.40)
[2024-03-24 12:18] LABS: Anisocytosis SLIGHT = 6-15 cells HPF (0-5); Band 4 % (5-11); Burr Cells SLIGHT = 2-5 cells HPF (0-1); Lymphocytes 3 % (21-51); Macrocytosis SLIGHT = 6-15 cells HPF (0-5); Monocytes 1 % (0-10); Neutrophil 92 % (42-75); Platelet Adequacy Comment Platelets Normal; Poikilocytosis SLIGHT = 6-15 cells HPF (0-5); Polychromasia SLIGHT = 2-3 cells HPF (0-2)
[2024-03-24 13:18] VITALS: BP 120/78; TEMP 98.1
== END 2024-03-24 13:55 | disposition home health service (06) | DRG 208 ==
LOC: ERS 19:03 → CCU 22:00 → 2SE 03-21 13:40
PROVIDERS: ADMIT Student in an Organized Health Care Education/Training Program; ATTEND Internal Medicine
PROC: 5A1935Z Respiratory Ventilation, Less than 24 Consecutive Hours (ICD-10-PCS; principal; 2024-03-17)
PROC: 0BH17EZ Insertion of Endotracheal Airway into Trachea, Via Natural or Artificial Opening (ICD-10-PCS; 2024-03-17)
PROC: 4A133R1 Monitoring of Arterial Saturation, Peripheral, Percutaneous Approach (ICD-10-PCS; 2024-03-17)
PROC: 4A00X4Z Measurement of Central Nervous Electrical Activity, External Approach (ICD-10-PCS; 2024-03-22)
DX: U07.1 COVID-19 (principal); J96.01 Acute respiratory failure with hypoxia; G93.41 Metabolic encephalopathy; N17.9 Acute kidney failure, unspecified; E87.21 Acute metabolic acidosis; I10 Essential (primary) hypertension; J44.9 Chronic obstructive pulmonary disease, unspecified; E87.5 Hyperkalemia; M19.90 Unspecified osteoarthritis, unspecified site; E83.39 Other disorders of phosphorus metabolism; F41.9 Anxiety disorder, unspecified; E78.2 Mixed hyperlipidemia; Z88.0 Allergy status to penicillin; Z91.09 Other allergy status, other than to drugs and biological substances; Z79.899 Other long term (current) drug therapy; Z79.51 Long term (current) use of inhaled steroids; Z90.710 Acquired absence of both cervix and uterus
CPT/HCPCS: 36415; 36416; 36600; 70450; 70496; 70498; 70551; 71045; 80048; 80053; 80061; 81001; 82805; 83036; 83605; 83735; 84100; 84484; 85025; 85027; 86850; 86900; 86901; 87040; 87086; 93005; 93306; 94002; 94003; 94640; 95700; 95711; 95819; C9113; C9254; J0692; J1100; J1630; J1650; J1885; J1953; J1956; J2060; J2272; J2930; J3010; J3370; J3475; J3490; J7050; J7070; J7611; J7620; J8540; Q9967

== ENCOUNTER 2024-04-13 17:19 | Inpatient (IN) | payer MEDICARE ==
[2024-04-13] MEDS ORDERED: Piperacillin/Tazobactam 4.5 GM VIAL ONE (17:54)
[2024-04-13] MEDS ORDERED: Sodium Chloride 0.9% 100 ML ONE (17:55)
[2024-04-13] MEDS ORDERED: Acetaminophen 500 MG TAB ONE (18:18)
[2024-04-13 18:26] LABS: #Basophils 0.03 10x3/uL (0.0-0.2); %Basophils 0.2 % (0.0-1.0); %Eosinophils 0.7 % (0.0-10.0); %Lymphocytes 13.1 % (21.0-51.0); %Neutrophils 76.1 % (42.0-75.0); Hematocrit 38.5 % (36.0-47.0); Hemoglobin 12.2 g/dL (12.0-16.0); Mean Corpuscular HGB CONC 31.7 g/dL (32.0-36.0); Mean Corpuscular Hemoglobin 29.5 pg (27.0-31.0); Mean Corpuscular Volume 93.2 fL (78.0-98.0); Mean Platelet Volume 10.1 fL (7.4-10.4); Platelet Count 416 10x3/uL (130-400); RBC Distribution Width 17.6 % (11.5-14.5); Red Blood Cell (RBC) Count 4.13 mill/uL (4.20-5.40)
[2024-04-13 18:40] LABS: ALT (SGPT) 56 U/L (8-55); AST (SGOT) 19 U/L (5-34); Albumin 2.2 g/dL (3.4-4.8); Alkaline Phosphatase 146 U/L (40-110); Anion Gap 15 mmol/L (10-20); BUN (Urea Nitrogen) 16 mg/dL (9.8-20.1); Bilirubin, Total 0.5 mg/dL (0.2-1.2); Calc. Creatinine Clearance 0 mL/min (70-130); Calcium 8.9 mg/dL (7.8-10.44); Carbon Dioxide 21 mmol/L (23-31); Chloride 109 mmol/L (98-107); Estimated GFR 69; Globulin 3.7 g/dL (2.4-3.5); Glucose 123 mg/dL (83-110); Potassium 4.8 mmol/L (3.5-5.1); Protein, Total 5.9 g/dL (5.8-8.1); Sodium 140 mmol/L (136-145)
[2024-04-13] MEDS ORDERED: Lorazepam 2 MG/ML VIAL ONE (19:23)
[2024-04-13] MEDS ORDERED: Vancomycin 1 GM/200 ML (FROZEN) BAG ONE (19:24)
[2024-04-13 21:11] LABS: Lactic Acid 1.3 mmol/L (0.5-2.2)
[2024-04-13] MEDS ORDERED: Ondansetron PF 4 MG/2 ML Vial IVP PRN (22:29)
[2024-04-13] MEDS ORDERED: Acetaminophen 325 MG TAB PO PRN (22:29)
[2024-04-13] MEDS ORDERED: cefTRIAXone\\ROCEPHIN 2 GM in Sodium Chloride 0.9% 100 ML IVPB SCH (23:00)
[2024-04-13 23:40] LABS: Actual Bicarbonate (HCO3a) 24.1 mEq/L (22-28); Base Excess (BEa) 0.1 mEq/L (-2.0 to +3.0); CO2 Tension 36.7 mmHg (35.0-45.0); Calcium, Ionized (arterial) 1.17 mmol/L (1.12-1.30); Carboxyhemoglobin (COHb) 1.4 gm% (0.0-3.0); Hematocrit-ABG 35 % (36.0-47.0); O2 Tension (PaO2), arterial 66.3 mmHg (> 70.0); pH, Arterial 7.435 (7.35-7.45)
[2024-04-13 23:43] LABS: ALV-art Gradient 115.985 mmHg (0-20); Puncture Site RBA
[2024-04-14 00:53] LABS: Bacteria/HPF None Seen HPF (None Seen); Bilirubin Negative (Negative); Blood, Urine Negative (Negative); CAUTI Indications for Culture Alt mental st,lethar; Clarity Clear (Clear); Glucose, Urine (Dipstick) Normal (Negative); Ketone, Urine Negative (Negative); Leukocyte Negative Leu/uL (Negative); Nitrite Negative (Negative); Protein, Urine (Dipstick) Negative (Neg-Trace); RBC/HPF 0-3 HPF (0-3); Specific Gravity, Urine 1.022 (1.002-1.036); Squamous Epithelial None Seen HPF (0-3); WBC/HPF 0-3 HPF (0-3); pH, Urine 6.5 (5.0-9.0)
[2024-04-14 00:54] LABS: Urine Culture Reflex No No
[2024-04-14] MEDS: Lacosamide 200 MG in Sodium Chloride 0.9% 50 ML IVPB SCH (00:57)
[2024-04-14 01:08] VITALS: BMI 31.5
[2024-04-14] MEDS ORDERED: Ipratropium/Albuterol 3 ML NEB EZPAP PRN (01:16)
[2024-04-14] MEDS ORDERED: Ipratropium/Albuterol 3 ML NEB ONE ×2 (01:41→07:58)
[2024-04-14 01:44] LABS: Troponin I Less than 0.010 ng/mL (< 0.028)
[2024-04-14] MEDS: Ipratropium/Albuterol 3 ML NEB NEB SCH ×2 (01:51→15:06)
[2024-04-14] MEDS ORDERED: Ampicillin 2 GM VIAL ONE ×3 (01:52→11:38)
[2024-04-14] MEDS ORDERED: Dexamethasone 10 MG/ML VIAL ONE (01:53)
[2024-04-14] MEDS ORDERED: Sodium Chloride 0.9% 300 ML ONE (01:55)
[2024-04-14] MEDS ORDERED: Piperacillin/Tazobactam 3.375 GM in Sodium Chloride 0.9% 100 ML IVPB SCH (02:00)
[2024-04-14] MEDS ORDERED: cefTRIAXone (ROCEPHIN) 2 GM VIAL ONE (02:01)
[2024-04-14] MEDS: Dexamethasone 10 MG/ML VIAL SLOW IVP SCH (02:03)
[2024-04-14] MEDS: cefTRIAXone\\ROCEPHIN 2 GM in Sodium Chloride 0.9% 100 ML IVPB SCH (02:03)
[2024-04-14] MEDS: Ampicillin 125 MG/5 ML VIAL SLOW IVP SCH (02:15)
[2024-04-14] MEDS ORDERED: Ketorolac Tromethamine 30 MG (1 mL) VIAL ONE (02:28)
[2024-04-14] MEDS: Ketorolac Tromethamine 30 MG (1 mL) VIAL IVP SCH (02:45)
[2024-04-14] MEDS: Ampicillin 2 GM in Sodium Chloride 0.9% 100 ML IVPB SCH (03:03)
[2024-04-14 03:15] LABS: Influenza A by NAA Not Detected (NotDetected); Influenza B by NAA Not Detected (NotDetected); SARS-CoV-2 NAA Rapid Test Not Detected (NotDetected)
[2024-04-14 03:59] LABS: Amphetamine Not Detected (NotDetected); Barbiturates Screen Not Detected (NotDetected); Benzodiazepine Screen Detected (NotDetected); Cocaine Metabolite Screen Not Detected (NotDetected); Methadone Not Detected (NotDetected); Methamphetamine Not Detected (NotDetected); Opiate Screen Detected (NotDetected); Oxycodone Screen Not Detected (NotDetected); Phencyclidine (PCP) Not Detected (NotDetected); THC/Cannabinoid Screen Not Detected (NotDetected); Tricyclic Screen Not Detected (NotDetected)
[2024-04-14 04:18] LABS: #Basophils 0.03 10x3/uL (0.0-0.2); %Basophils 0.2 % (0.0-1.0); %Eosinophils 0.5 % (0.0-10.0); %Lymphocytes 7.9 % (21.0-51.0); %Neutrophils 86.5 % (42.0-75.0); Hematocrit 36.1 % (36.0-47.0); Hemoglobin 11.6 g/dL (12.0-16.0); Mean Corpuscular HGB CONC 32.1 g/dL (32.0-36.0); Mean Corpuscular Hemoglobin 29.5 pg (27.0-31.0); Mean Corpuscular Volume 91.9 fL (78.0-98.0); Mean Platelet Volume 10.2 fL (7.4-10.4); Platelet Count 367 10x3/uL (130-400); RBC Distribution Width 17.4 % (11.5-14.5); Red Blood Cell (RBC) Count 3.93 mill/uL (4.20-5.40)
[2024-04-14] MEDS ORDERED: Sodium Chloride 0.9% 250 ML 250 ML ONE ×2 (04:32→04:33)
[2024-04-14 04:38] LABS: Anion Gap 13 mmol/L (10-20); BUN (Urea Nitrogen) 14 mg/dL (9.8-20.1); Calc. Creatinine Clearance 75 mL/min (70-130); Calcium 8.3 mg/dL (7.8-10.44); Carbon Dioxide 20 mmol/L (23-31); Chloride 109 mmol/L (98-107); Estimated GFR 79; Glucose 101 mg/dL (83-110); Potassium 4.7 mmol/L (3.5-5.1); Sodium 137 mmol/L (136-145)
[2024-04-14 04:39] LABS: ALT (SGPT) 45 U/L (8-55); AST (SGOT) 17 U/L (5-34); Alkaline Phosphatase 134 U/L (40-110); Bilirubin, Direct 0.2 mg/dL (0.1-0.3); Bilirubin, Total 0.4 mg/dL (0.2-1.2); Protein, Total 5.5 g/dL (5.8-8.1)
[2024-04-14] MEDS: Vancomycin HCl 750 MG in Sodium Chloride 0.9% 250 ML 250 ML IVPB SCH (04:44)
[2024-04-14] MEDS ORDERED: Lorazepam 2 MG/ML VIAL SLOW IVP PRN (04:59)
[2024-04-14] MEDS ORDERED: Lacosamide 200 MG in Sodium Chloride 0.9% 50 ML IVPB SCH (09:00)
[2024-04-14] MEDS ORDERED: Sodium Bicarbonate 2.5 MEQ/5 ML SDV ONE (09:19)
[2024-04-14 11:03] LABS: CSF Source CSF; Tube # 2
[2024-04-14 11:04] LABS: CSF Source CSF; Clarity Clear (Clear); Tube # 4
[2024-04-14 11:07] LABS: CSF, Glucose 62 mg/dl (40-70); CSF, Protein 55.4 mg/dL (15-40)
[2024-04-14 11:27] LABS: Color Of CSF Supernatant COLORLESS (Colorless); Tube # 1; Unspun CSF Color COLORLESS (Colorless)
[2024-04-14] MEDS ORDERED: Lacosamide 100 MG in Sodium Chloride 0.9% 50 ML IVPB SCH (12:00)
[2024-04-14] MEDS ORDERED: Lacosamide 50 mg Tablet PO SCH (14:00)
[2024-04-14] MEDS: Lacosamide 100 MG in Sodium Chloride 0.9% 50 ML IVPB SCH (15:30)
[2024-04-14] MEDS: Mometasone 200 MCG/Formoterol 5 MCG 120 PUFF INHALER INH SCH (18:58)
[2024-04-14] MEDS: Lacosamide 50 mg Tablet PO SCH (20:04)
[2024-04-14] MEDS: Pregabalin 75 MG CAP PO SCH (20:04)
[2024-04-15 04:02] LABS: #Basophils Less than 0.03 10x3/uL (0.0-0.2); #Eosinphils Less than 0.03 10x3/uL (0.0-0.7); %Basophils 0.1 % (0.0-1.0); %Lymphocytes 7.5 % (21.0-51.0); %Monocytes 5.4 % (0.0-10.0); %Neutrophils 85.7 % (42.0-75.0); Hemoglobin 11.2 g/dL (12.0-16.0); Mean Corpuscular HGB CONC 32.9 g/dL (32.0-36.0); Mean Corpuscular Hemoglobin 29.2 pg (27.0-31.0); Mean Corpuscular Volume 88.8 fL (78.0-98.0); Mean Platelet Volume 10.6 fL (7.4-10.4); Platelet Count 367 10x3/uL (130-400); RBC Distribution Width 17.1 % (11.5-14.5); Red Blood Cell (RBC) Count 3.83 mill/uL (4.20-5.40)
[2024-04-15 04:38] LABS: Anion Gap 12 mmol/L (10-20); BUN (Urea Nitrogen) 13 mg/dL (9.8-20.1); Calc. Creatinine Clearance 87 mL/min (70-130); Calcium 8.8 mg/dL (7.8-10.44); Carbon Dioxide 20 mmol/L (23-31); Chloride 109 mmol/L (98-107); Estimated GFR 91; Glucose 126 mg/dL (83-110); Potassium 4.7 mmol/L (3.5-5.1); Sodium 136 mmol/L (136-145)
[2024-04-15] MEDS: Spironolactone 25 MG TAB PO SCH (08:47)
[2024-04-15] MEDS: Amlodipine 10 MG TAB PO SCH (08:48)
[2024-04-15] MEDS: Pantoprazole DR 40 MG TAB PO SCH (08:48)
[2024-04-15] MEDS: Citalopram 10 MG TAB PO SCH (08:49)
[2024-04-15] MEDS: Atorvastatin Calcium 10 MG TAB PO SCH (08:57)
[2024-04-15] MEDS ORDERED: Magnevist 469MG/ML 20 ML VIAL ONE (12:02)
[2024-04-15 12:32] VITALS: TEMP 98.1
[2024-04-15 14:52] VITALS: BP 134/78
== END 2024-04-15 17:03 | disposition home or self-care (01) | DRG 70 ==
LOC: ERS 17:19 → ERHOLD 22:27 → 2SE 04-14 15:18
PROVIDERS: ADMIT Internal Medicine; ATTEND Internal Medicine
PROC: 009U3ZX Drainage of Spinal Canal, Percutaneous Approach, Diagnostic (ICD-10-PCS; principal; 2024-04-13)
PROC: B01B1ZZ Fluoroscopy of Spinal Cord using Low Osmolar Contrast (ICD-10-PCS; 2024-04-13)
PROC: 4A033R1 Measurement of Arterial Saturation, Peripheral, Percutaneous Approach (ICD-10-PCS; 2024-04-13)
DX: G93.41 Metabolic encephalopathy (principal); J96.21 Acute and chronic respiratory failure with hypoxia; R29.90 Unspecified symptoms and signs involving the nervous system; J44.9 Chronic obstructive pulmonary disease, unspecified; I10 Essential (primary) hypertension; E78.5 Hyperlipidemia, unspecified; M54.50 Low back pain, unspecified; G89.29 Other chronic pain; M19.90 Unspecified osteoarthritis, unspecified site; F32.A Depression, unspecified; F41.9 Anxiety disorder, unspecified; Z88.0 Allergy status to penicillin; Z88.8 Allergy status to other drugs, medicaments and biological substances; Z79.899 Other long term (current) drug therapy; Z79.82 Long term (current) use of aspirin
CPT/HCPCS: 36415; 36600; 62270; 70450; 70553; 71045; 76377; 80048; 80053; 80076; 80306; 81001; 82805; 82945; 83605; 84157; 84484; 85025; 87040; 87070; 87086; 87205; 89051; 93005; 94640; 94760; 97139; A9579; C9254; J0133; J0290; J0696; J1100; J1885; J2060; J2543; J3370; J3370-JW; J7050; J7620

== ENCOUNTER 2024-06-30 09:18 | Outpatient (CLI) | payer MEDICARE | END 2024-06-30 09:19 | disposition home or self-care (01) | LOC: BICULT 09:18 | PROVIDERS: ATTEND Family Medicine | DX: R10.10 Upper abdominal pain, unspecified (principal); N28.1 Cyst of kidney, acquired; I70.90 Unspecified atherosclerosis; K82.4 Cholesterolosis of gallbladder | CPT/HCPCS: 76700 ==

== ENCOUNTER 2025-06-02 10:39 | Outpatient (CLI) | payer MEDICARE, OTHER | END 2025-06-02 10:40 | disposition home or self-care (01) | LOC: RAD 10:39 | PROVIDERS: ATTEND Internal Medicine | DX: J44.9 Chronic obstructive pulmonary disease, unspecified (principal); J98.11 Atelectasis | CPT/HCPCS: 71046 ==